=== PATIENT | male | born 1955 | race Two or more races ===

== ENCOUNTER 2019-08-28 03:47 | Emergency (ER) | payer SELFPAY ==
[~2019-08-28] VITALS: Ht 167.6 cm; Wt 74.8 kg
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
[2019-08-28] MEDS ORDERED: oxyCODONE/APAP (5/325 MG) 1 UDTAB TABLET PO ONE (04:30)
[2019-08-28] MEDS ORDERED: IBUPROFEN 600 MG TABLET PO ONE ×2 (04:30→04:51)
[2019-08-28] MEDS ORDERED: oxyCODONE/APAP (5/325 MG) 1 UDTAB TABLET ONE (04:51)
[2019-08-28] MEDS ORDERED: TDAP [DIPH/PERTUSSIS/TET] 0.5 ML VIAL IM ONE ×2 (05:00→05:16)
[2019-08-28 05:47] VITALS: BP 141/88
== END 2019-08-28 05:48 | disposition home or self-care (01) ==
LOC: ER 03:52
DX: S00.81XA Abrasion of other part of head, initial encounter (principal); S20.311A Abrasion of right front wall of thorax, initial encounter; V49.69XA Unspecified car occupant injured in collision with other motor vehicles in traffic accident, initial encounter; Y93.89 Activity, other specified; Y92.413 State road as the place of occurrence of the external cause; Y99.8 Other external cause status
CPT/HCPCS: 70450-TC; 71250-TC; 90715